=== PATIENT | female | born 1950 | race Hispanic/Latino ===

== ENCOUNTER 2018-09-06 05:51 | Inpatient (IN) | payer OTHER, MEDICARE ==
[~2018-09-06] VITALS: Ht 154.9 cm; Wt 68.9 kg
[~2018-09-06 05:51] MED LIST: CANA300T PO; LINA5TAB PO; LISI-617 PO; MELO15TA12 PO; METF-445 PO; OMEG100014 PO; ONDA4TAB10 PO; PROM25TA7 PO; TIZA4TAB4 PO
[2018-09-06] MEDS ORDERED: SODIUM CHLORIDE 0.9% 1000ML 1,000 ML IV ONE ×2 (06:26→11:30)
[2018-09-06] MEDS ORDERED: ONDANSETRON HCL 4 MG/2 ML VIAL ONE (06:26)
[2018-09-06] MEDS ORDERED: KETOROLAC TROMETHAMINE 30MG/ML ONE (06:27)
[2018-09-06 06:32] LABS: BASOPHILS % (AUTO) 0.3 % (0.0-5.0); EOSINOPHILS % (AUTO) 0.3 % (0.0-8.0); HEMATOCRIT 49.8 % (36-48); LYMPHOCYTES % (AUTO) 7.7 % (21.0-51.0); MEAN CORPUSCULAR HEMOGLOBIN 33.7 pg (27.0-33.0); MEAN CORPUSCULAR HGB CONC 32.9 g/dL (32.0-36.0); MEAN CORPUSCULAR VOLUME 102.3 fL (79-99); MONOCYTES % (AUTO) 2.8 % (3.0-13.0); NEUTROPHILS % (AUTO) 88.9 % (40.0-77.0); PLATELET COUNT (AUTO) 142 K/uL (130-400); RED BLOOD CELL COUNT(AUTO) 4.87 MIL/uL (4.00-5.50); RED CELL DISTRIBUTION WIDTH 13.2 % (11.0-15.5); WHITE BLOOD COUNT (AUTO) 11.7 K/uL (4.8-10.8)
[2018-09-06 06:33] LABS: APPEARANCE,URINE Clear (CLEAR); BILIRUBIN,URINE Negative (NEGATIVE); COLOR,URINE Yellow (YELLOW); GLUCOSE, URINE (UA) >=1000 mg/dL (NEGATIVE); KETONES,URINE 40 mg/dL (NEGATIVE); LEUKOCYTE ESTERASE ,URINE Negative (NEGATIVE); NITRATE,URINE Negative (NEGATIVE); OCCULT BLOOD,URINE Trace (NEGATIVE); PH,URINE 5.5 (5.0-8.0); PROTEIN,URINE POS 2+ (NEGATIVE)
[2018-09-06 06:37] LABS: CREATININE 0.8 mg/dL (0.5-1.5); POTASSIUM 4.1 mmol/L (3.5-5.1)
[2018-09-06 06:41] LABS: ALBUMIN 4.4 g/dL (3.5-5.0); BILIRUBIN,DIRECT 0.1 mg/dL (0.0-0.3); BILIRUBIN,TOTAL 0.7 mg/dL (0.2-1.0); TOTAL PROTEIN, SERUM 8.4 g/dL (6.0-8.3)
[2018-09-06 07:09] LABS: BACTERIA,URINE Rare /HPF (None Seen); RBC,URINE 0-1 /HPF (0-1); WBC,URINE 0-1 /HPF (0-1)
[2018-09-06 07:10] LABS: SQUAMOUS EPITHELIAL CELL,UR Rare /HPF (0-2)
[2018-09-06] MEDS ORDERED: KETOROLAC TROMETHAMINE 30MG/ML IV PRN (11:15)
[2018-09-06] MEDS ORDERED: ZOSYN 3.375GM+NS 50ML 50 ML IV ONE (11:30)
[2018-09-06] MEDS ORDERED: SODIUM CHLORIDE 0.9% 50 ML IV ONE (11:31)
[2018-09-06 12:00] VITALS: BP 123/55
[2018-09-06] MEDS: FAMOTIDINE/PF 20 MG/2 ML VIAL IV SCH ×2 (14:59→21:14)
[2018-09-06] MEDS: ZOSYN 3.375GM+NS 50ML 50 ML IV SCH ×2 (14:59→21:25)
[2018-09-06] MEDS: SODIUM CHLORIDE 0.9% 1000ML 1,000 ML IV SCH (15:00)
[2018-09-06 16:00] VITALS: BP 112/53
[2018-09-06 20:00] VITALS: BP 132/62
[2018-09-07] VITALS: BP 102/60
[2018-09-07 04:00] VITALS: BP 96/58
[2018-09-07] MEDS: ZOSYN 3.375GM+NS 50ML 50 ML IV SCH ×2 (05:45→12:56)
[2018-09-07] MEDS: SODIUM CHLORIDE 0.9% 1000ML 1,000 ML IV SCH ×2 (05:46→13:55)
[2018-09-07 08:00] VITALS: BP 122/56
[2018-09-07] MEDS: FAMOTIDINE/PF 20 MG/2 ML VIAL IV SCH (09:30)
[2018-09-07 12:00] VITALS: BP 110/60
[2018-09-07 16:00] VITALS: BP 106/67
== END 2018-09-07 20:25 | disposition home or self-care (01) | DRG 392 ==
LOC: EDH 05:51 → EDHIP 10:55 → 3BH 11:24
PROVIDERS: ADMIT Internal Medicine; ATTEND Internal Medicine
DX: K29.00 Acute gastritis without bleeding (principal); K21.9 Gastro-esophageal reflux disease without esophagitis; I10 Essential (primary) hypertension; E11.9 Type 2 diabetes mellitus without complications
CPT/HCPCS: 36415; 74176; 80048; 80076; 81001; 82948; 83690; 84484; 85025; 93005; J1885; J2405; J2543; J3490; J7030

== ENCOUNTER 2018-12-24 03:55 | Emergency (ER) | payer OTHER, MEDICARE ==
[2018-12-24] MEDS ORDERED: ONDANSETRON HCL 4 MG/2 ML VIAL ONE (04:16)
[2018-12-24] MEDS ORDERED: METOCLOPRAMIDE 10 MG/2 ML VIAL ONE (04:16)
[2018-12-24] MEDS ORDERED: FAMOTIDINE/PF 20 MG/2 ML VIAL IV ONE (04:17)
[2018-12-24] MEDS ORDERED: SODIUM CHLORIDE 0.9% 50 ML IV ONE (04:17)
[2018-12-24] MEDS ORDERED: IOHEXOL-350 75 ML VIAL IV ONE (04:31)
[2018-12-24 05:02] LABS: BASOPHILS % (AUTO) 0.3 % (0.0-5.0); EOSINOPHILS % (AUTO) 1.4 % (0.0-8.0); HEMATOCRIT 50.6 % (36-48); LYMPHOCYTES % (AUTO) 8.5 % (21.0-51.0); MEAN CORPUSCULAR HEMOGLOBIN 34.1 pg (27.0-33.0); MEAN CORPUSCULAR HGB CONC 33.9 g/dL (32.0-36.0); MEAN CORPUSCULAR VOLUME 100.5 fL (79-99); NEUTROPHILS % (AUTO) 86.8 % (40.0-77.0); PLATELET COUNT (AUTO) 151 K/uL (130-400); RED BLOOD CELL COUNT(AUTO) 5.04 MIL/uL (4.00-5.50); RED CELL DISTRIBUTION WIDTH 12.7 % (11.0-15.5)
[2018-12-24 05:12] LABS: CREATININE 0.9 mg/dL (0.5-1.5); POTASSIUM 4.6 mmol/L (3.5-5.1)
[2018-12-24 05:13] LABS: INR 0.97 (0.85-1.15); PARTIAL THROMBOPLASTIN TIME 26.1 SEC (26.3-35.5); PROTHROMBIN TIME 10.2 SEC (9.6-11.6)
[2018-12-24 05:17] LABS: ALBUMIN 4.6 g/dL (3.5-5.0); BILIRUBIN,TOTAL 0.7 mg/dL (0.2-1.0)
[2018-12-24 06:57] LABS: APPEARANCE,URINE CLEAR (CLEAR); BILIRUBIN,URINE NEGATIVE (NEGATIVE); COLOR,URINE YELLOW (YELLOW); GLUCOSE, URINE (UA) >=1000 mg/dL (NEGATIVE); KETONES,URINE 15 mg/dL (NEGATIVE); LEUKOCYTE ESTERASE ,URINE NEGATIVE (NEGATIVE); NITRATE,URINE NEGATIVE (NEGATIVE); OCCULT BLOOD,URINE TRACE-INTACT (NEGATIVE); PROTEIN,URINE NEGATIVE (NEGATIVE); UROBILINOGEN,URINE 0.2 mg/dL (0.2-1.0)
[2018-12-24 07:38] LABS: BACTERIA,URINE Rare /HPF (None Seen); RBC,URINE 0-1 /HPF (0-1); WBC,URINE 0-1 /HPF (0-1)
[2018-12-24 07:39] LABS: SQUAMOUS EPITHELIAL CELL,UR Rare /HPF (0-2); YEAST,URINE BUDDING Rare /HPF (None Seen)
== END 2018-12-24 07:06 | disposition home or self-care (01) ==
LOC: EDH 03:55
DX: K52.9 Noninfective gastroenteritis and colitis, unspecified (principal); R10.13 Epigastric pain; E11.9 Type 2 diabetes mellitus without complications; I10 Essential (primary) hypertension; E78.5 Hyperlipidemia, unspecified
CPT/HCPCS: 36415; 74177; 80053; 81001; 83605; 83690; 84484; 85025; 85610; 85730; 93005; 96374; 96375; 99284; J2405; J2765; J3490; Q9967

== ENCOUNTER 2019-01-23 15:03 | Observation (INO) | payer OTHER, MEDICARE ==
[~2019-01-23] VITALS: Ht 152.4 cm; Wt 67.4 kg
[2019-01-23 15:45] LABS: BASOPHILS % (AUTO) 0.4 % (0.0-5.0); EOSINOPHILS % (AUTO) 0.5 % (0.0-8.0); HEMATOCRIT 46.3 % (36-48); LYMPHOCYTES % (AUTO) 7.4 % (21.0-51.0); MEAN CORPUSCULAR HEMOGLOBIN 33.8 pg (27.0-33.0); MEAN CORPUSCULAR HGB CONC 33.6 g/dL (32.0-36.0); MEAN CORPUSCULAR VOLUME 100.7 fL (79-99); MONOCYTES % (AUTO) 7.9 % (3.0-13.0); NEUTROPHILS % (AUTO) 83.8 % (40.0-77.0); PLATELET COUNT (AUTO) 202 K/uL (130-400); RED BLOOD CELL COUNT(AUTO) 4.59 MIL/uL (4.00-5.50); RED CELL DISTRIBUTION WIDTH 12.9 % (11.0-15.5); WHITE BLOOD COUNT (AUTO) 8.9 K/uL (4.8-10.8)
[2019-01-23 15:55] LABS: CREATININE 0.8 mg/dL (0.5-1.5); POTASSIUM 4.5 mmol/L (3.5-5.1)
[2019-01-23] MEDS ORDERED: GUAIFENESIN-DM 200/20 MG 10 ML PO PRN (16:00)
[2019-01-23] MEDS ORDERED: ZOLPIDEM TARTRATE 5 MG TAB PO PRN (16:00)
[2019-01-23] MEDS ORDERED: MAG HYDROX/AL HYDROX/SIMETH ES 30 ML SUSP UDCUP PO PRN (16:00)
[2019-01-23 16:02] LABS: ALBUMIN 3.3 g/dL (3.5-5.0); BILIRUBIN,TOTAL 0.5 mg/dL (0.2-1.0); TOTAL PROTEIN, SERUM 8.1 g/dL (6.0-8.3)
[2019-01-23] MEDS ORDERED: ACETAMINOPHEN 325 MG TAB ONE (20:28)
[2019-01-23] MEDS: FAMOTIDINE 20MG TAB 20 MG TAB PO SCH (21:00)
[2019-01-23 21:50] VITALS: BP 104/60
[2019-01-24] VITALS: BP 96/52
[2019-01-24 04:00] VITALS: BP 104/63
[2019-01-24 05:11] LABS: HEMATOCRIT 40.8 % (36-48); MEAN CORPUSCULAR HEMOGLOBIN 34.5 pg (27.0-33.0); MEAN CORPUSCULAR HGB CONC 33.9 g/dL (32.0-36.0); MEAN CORPUSCULAR VOLUME 101.6 fL (79-99); PLATELET COUNT (AUTO) 172 K/uL (130-400); RED BLOOD CELL COUNT(AUTO) 4.02 MIL/uL (4.00-5.50); RED CELL DISTRIBUTION WIDTH 12.9 % (11.0-15.5); WHITE BLOOD COUNT (AUTO) 7.4 K/uL (4.8-10.8)
[2019-01-24 05:38] LABS: ALBUMIN 2.6 g/dL (3.5-5.0); BILIRUBIN,TOTAL 0.5 mg/dL (0.2-1.0); CREATININE 0.7 mg/dL (0.5-1.5); TOTAL PROTEIN, SERUM 6.8 g/dL (6.0-8.3)
[2019-01-24] MEDS: SODIUM CHLORIDE 0.9% 1000ML 1,000 ML IV SCH ×2 (06:29→17:54)
[2019-01-24 08:00] VITALS: BP 115/69
[2019-01-24] MEDS: FAMOTIDINE 20MG TAB 20 MG TAB PO SCH ×2 (09:48→21:14)
[2019-01-24] MEDS: ACETAMINOPHEN 325 MG TAB PO PRN ×2 (09:55→21:15)
[2019-01-24 11:41] VITALS: BP 104/63
--- NOTE | 2019-01-24 13:16 | NUR ---
DCP CM met with and family discussed dc plans. Pt is independent prior to admission, lives at home with spouse. Has a walker and provider 4hrs/day. Pt feels safe to go back home, spouse able to assist with transportation and needs. DC plan to home once stable. CM to cont to follow up. Addendum: 01/24/19 at 1317 by SEDA COBB LVN CM Amended: Links added.
[2019-01-24 16:00] VITALS: BP 103/50
--- NOTE | 2019-01-24 18:00 | NUR ---
NOTE PAGED DR GUILLEN TO ASK IF HE WILL BE ROUNDING ON HIS PATIENTS AND HE HAS NOT RETURNED MY PAGE. 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 WILL PAGE AGAIN.
[2019-01-24 20:00] VITALS: BP 132/82
[2019-01-24] MEDS ORDERED: LEVOFLOXACIN 500 MG/D5W 100 ML 0 ML ONE (20:57)
[2019-01-24] MEDS ORDERED: LEVOFLOXACIN 750 MG/D5W 150 ML 150 ML IV SCH (21:00)
[2019-01-24] MEDS ORDERED: LEVOFLOXACIN 750 MG/D5W 150 ML 150 ML ONE (21:09)
[2019-01-24] MEDS: OSELTAMIVIR PHOSPHATE 75 MG CAP PO SCH (21:14)
[2019-01-25] VITALS (7 sets, daily range): BP systolic 108–134; BP diastolic 62–77
[2019-01-25] MEDS: SODIUM CHLORIDE 0.9% 1000ML 1,000 ML IV SCH ×2 (06:14→22:49)
[2019-01-25] MEDS: HUMALOG PO SS1 SQ SCH ×4 (06:33→21:00)
[2019-01-25] MEDS: OSELTAMIVIR PHOSPHATE 75 MG CAP PO SCH ×2 (09:54→22:48)
[2019-01-25] MEDS: FAMOTIDINE 20MG TAB 20 MG TAB PO SCH ×2 (09:54→22:49)
[2019-01-25] MEDS: ACETAMINOPHEN 325 MG TAB PO PRN (14:31)
[2019-01-26 04:00] VITALS: BP 126/83
[2019-01-26] MEDS: HUMALOG PO SS1 SQ SCH ×3 (06:09→16:30)
[2019-01-26 08:00] VITALS: BP 132/78
[2019-01-26] MEDS: OSELTAMIVIR PHOSPHATE 75 MG CAP PO SCH (09:39)
[2019-01-26] MEDS: FAMOTIDINE 20MG TAB 20 MG TAB PO SCH (09:39)
[2019-01-26 12:00] VITALS: BP 116/62
--- NOTE | 2019-01-26 13:00 | NUR ---
DR GUILLEN GAVE TELEPHONE ORDERS FOR PATIENT DISCHARGE AND WILL CALL MEDICATIONS IN TO HER [facility] DOXYCYCLINE AND TAMIFLU AND SHE IS TO FOLLOW-UP WITH HIM NEEDED.
[2019-01-26 16:00] VITALS: BP 129/58
[2019-01-26] MEDS: ACETAMINOPHEN 325 MG TAB PO PRN (17:22)
--- NOTE | 2019-01-26 17:30 | NUR ---
PATIENT GIVEN DISCHARGE INSTRUCTION AND VERBALIZED UNDERSTANDING , IV REMOVED WITH CATHETER INTACT AND SITE DRESSED, PATIENT INSTRUCTED TO HEAD MACHINIST THE MEDICATION FROM [facility] THAT DR GUILLEN CALLED IN DOXYCYCLINE AND TAMIFLU AND TO TAKE ORDERED. PATIENT INSTRUCTED TO CONTACT DR GUILLEN FOR ANY QUESTIONS OR CONCERNS. PATIENT TAKING BY WHEELCHAIR TO LOBBY AND LEFT IN PRIVATE CAR WITH FOR HOME
== END 2019-01-26 18:00 | disposition home or self-care (01) ==
LOC: EDH 15:03 → EDHIP 15:38 → 3AH 21:50
PROVIDERS: ADMIT Internal Medicine; ATTEND Internal Medicine
DX: R50.9 Fever, unspecified (principal); E11.9 Type 2 diabetes mellitus without complications; E86.0 Dehydration; E78.5 Hyperlipidemia, unspecified; I10 Essential (primary) hypertension; Z79.899 Other long term (current) drug therapy
CPT/HCPCS: 36415 ×2; 71045; 80053 ×2; 82948 ×11; 85025; 85027; 87040 ×2; 96361 ×3; 96365; 96372; 99284; G0378 ×74; J1956; J7030 ×2

== ENCOUNTER → 2019-09-11 | Outpatient (CLI) | payer OTHER | END | disposition home or self-care (01) | LOC: RAH 10:36 | PROVIDERS: ATTEND Internal Medicine Gastroenterology | DX: R14.0 Abdominal distension (gaseous) (principal); R11.0 Nausea | CPT/HCPCS: 78264; A9541 ==

== ENCOUNTER → 2022-12-21 | Outpatient (CLI) | payer OTHER | END | disposition home or self-care (01) | LOC: RAH 11:35 | PROVIDERS: ATTEND Internal Medicine | DX: M19.042 Primary osteoarthritis, left hand (principal); M77.9 Enthesopathy, unspecified; M77.8 Other enthesopathies, not elsewhere classified | CPT/HCPCS: 73110; 73130 ==